=== PATIENT | female | born 1975 | race American Indian/Alaskan Native ===

== ENCOUNTER 2019-05-18 13:29 | Outpatient (CLI) | payer OTHER ==
--- NOTE | 2019-05-18 14:08 | XRay Report ---
CHEST 2 VIEWS INDICATION / CLINICAL INFORMATION: COUGH. COMPARISON: None available. FINDINGS: SUPPORT DEVICES: None. HEART / MEDIASTINUM: The heart size and pulmonary vasculature are normal. LUNGS / PLEURA: No significant pulmonary or pleural abnormality. No pneumothorax. ADDITIONAL FINDINGS: No significant additional findings. IMPRESSION: No acute findings. Signer Name: Remi Gonzales MD Signed: 05/18/2019 2:03 PM Workstation Name: [id number]
== END 2019-05-18 13:30 | disposition home or self-care (01) ==
LOC: SPVIMAG 13:29
PROVIDERS: ATTEND Internal Medicine
DX: R05 Cough (principal)
CPT/HCPCS: 71046